=== PATIENT | female | born 1940 | race Caucasian/White ===

== ENCOUNTER 2018-01-11 14:14 | Emergency (ER) | payer OTHER ==
[~2018-01-11] VITALS: Ht 170.2 cm; Wt 52.9 kg
[2018-01-11 15:24] VITALS: BP 126/80
== END 2018-01-11 15:26 | disposition home or self-care (01) ==
LOC: EME 14:14
DX: S41.102D Unspecified open wound of left upper arm, subsequent encounter (principal); W54.8XXD Other contact with dog, subsequent encounter; Z88.5 Allergy status to narcotic agent
CPT/HCPCS: 99281; 99283